=== PATIENT | female | born 1995 | race African-American/Black ===

== ENCOUNTER 2017-05-04 02:36 | Emergency (ER) | payer SELFPAY ==
[2017-05-04] MEDS ORDERED: Ibuprofen 800 MG TAB ONE (02:41)
[2017-05-04] MEDS ORDERED: methylPREDNISolone Sod Succ/PF 125 MG/2 ML VIAL ONE (04:38)
--- NOTE | 2017-05-04 08:24 | RAD ---
3 VIEWS LUMBAR SPINE: Date: 05/04/17 HISTORY: Low back pain that started the evening of 05/04/17. Patient states was bending over when felt a po p in the lower back. Pain radiates into legs. FINDINGS: There are five non-rib bearing lumbar-type vertebral bodies. Vertebral body heights and intervertebra l disc spaces do appear to be within normal limits. No fracture or subluxation is visualized. IMPRESSION: No acute findings involving the lumbar spine. POS: DAMON
== END 2017-05-04 05:10 | disposition home or self-care (01) ==
LOC: ERS 02:36
DX: S39.012A Strain of muscle, fascia and tendon of lower back, initial encounter (principal); X50.9XXA Other and unspecified overexertion or strenuous movements or postures, initial encounter
CPT/HCPCS: 72100; 96372; J2930

== ENCOUNTER 2017-12-31 23:23 | Emergency (ER) | payer SELFPAY ==
[2018-01-01] MEDS ORDERED: Ketorolac Tromethamine 30 MG/ML VIAL ONE (00:02)
== END 2018-01-01 00:40 | disposition home or self-care (01) ==
LOC: ERS 23:23
DX: S39.012A Strain of muscle, fascia and tendon of lower back, initial encounter (principal); F41.9 Anxiety disorder, unspecified; F31.9 Bipolar disorder, unspecified; F20.9 Schizophrenia, unspecified; X58.XXXA Exposure to other specified factors, initial encounter
CPT/HCPCS: 96372; J1885

== ENCOUNTER 2019-02-25 09:29 | Emergency (ER) | payer SELFPAY | END 2019-02-25 11:19 | disposition home or self-care (01) | LOC: ERS 09:29 | DX: H10.9 Unspecified conjunctivitis (principal); J45.909 Unspecified asthma, uncomplicated; F41.9 Anxiety disorder, unspecified; F31.9 Bipolar disorder, unspecified; F20.9 Schizophrenia, unspecified | CPT/HCPCS: 99283 ==

== ENCOUNTER 2019-03-01 21:50 | Emergency (ER) | payer SELFPAY ==
[2019-03-01] MEDS ORDERED: Tobramycin Sulfate 0.3% Ophth Susp 5 ml Bottle ONE (22:03)
== END 2019-03-01 22:14 | disposition home or self-care (01) ==
LOC: ERS 21:50
DX: H10.9 Unspecified conjunctivitis (principal); J45.909 Unspecified asthma, uncomplicated; F41.9 Anxiety disorder, unspecified; F31.9 Bipolar disorder, unspecified; F20.9 Schizophrenia, unspecified
CPT/HCPCS: 99283

== ENCOUNTER 2019-03-04 09:36 | Emergency (ER) | payer BC, SELFPAY | END 2019-03-04 10:58 | disposition home or self-care (01) | LOC: ERS 09:36 | DX: H10.9 Unspecified conjunctivitis (principal); F31.9 Bipolar disorder, unspecified; F41.9 Anxiety disorder, unspecified; F20.9 Schizophrenia, unspecified | CPT/HCPCS: 99283 ==

== ENCOUNTER 2019-08-05 09:04 | Outpatient (CLI) | payer OTHER ==
--- NOTE | 2019-08-05 09:54 | ULT ---
Obstetrical ultrasound: 08/05/2019 COMPARISON: None HISTORY: Assess anatomy TECHNIQUE: Multiplanar grayscale sonographic imaging of the gravid uterus obtained. FINDINGS: There is a single intrauterine gestation demonstrating a vertex presentation. Cervical stanley th is 3.2 cm. Placenta located anteriorly with no evidence for previa or abruption. Four-chamber heart view unremarkable with heart rate of 140 bpm. The stomach, kidneys, um bilical cord insertion, umbilical cord, and urinary bladder appear unremarkable. Intracranial contents, nose and lips, spine unremarkable. Amniotic fluid index is 13.3 cm. biometry: Biparietal diameter 6.8 cm 27 weeks 2 days Head circumference 24.5 cm 26 weeks 5 days Abdominal circumference 21.9 cm 26 weeks 3 days Femur length 4.8 cm 26 weeks 1 day Average age based on ultrasound is 26 weeks 5 days. Estimated date of delivery is 11/06/2019. Estimated weight is 922 g +/- 135 g. IMPRESSION: Intrauterine gestation as detailed above.
== END 2019-08-05 09:05 | disposition home or self-care (01) ==
LOC: BICULT 09:04
PROVIDERS: ATTEND Family Medicine
DX: O09.92 Supervision of high risk pregnancy, unspecified, second trimester (principal); Z3A.26 26 weeks gestation of pregnancy
CPT/HCPCS: 76805

== ENCOUNTER 2019-10-30 19:54 | Day surgery (SDC) | payer OTHER ==
[2019-10-30] MEDS ORDERED: hydrALAZINE 20 MG/ML VIAL SLOW IVP PRN (21:03)
[2019-10-30 21:06] VITALS: BMI 37.7
[2019-10-30 21:17] LABS: Amnisure Internal Control QC ACCEPTABLE (ACCEPTABLE); Amnisure Test No Membranes Rupture (No Rupture)
--- NOTE | 2019-10-30 22:56 | PRG ---
DATE OF SERVICE: 10/30/2019 TIME OF SERVICE: 2125 hours. PRESENTING COMPLAINT: Possible rupture of membranes at 38 to 39 weeks. HISTORY OF PRESENT ILLNESS: The patient sees Dr. Ward at [facility]. She is a G4, P3, with EDC of 11/06. She complains of possible leakage of fluid. Reports active fetus. Denies significant contractions. 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 Blood type O positive, antibody negative. Pap negative. Rubella immune. VDRL nonreactive. Hepatitis B, GC, chlamydia negative. Group B strep negative. PAST MEDICAL HISTORY: None. PAST SURGICAL HISTORY: None. ALLERGIES: DENIES. MEDICATION: vitamins. SOCIAL HISTORY: Denies tobacco, alcohol, or IV drug use. FAMILY HISTORY: Noncontributory. REVIEW OF SYSTEMS: Noncontributory. PHYSICAL EXAMINATION: GENERAL: Obese, black female, in no acute distress. VITAL SIGNS: Blood pressure 129/86, pulse 85, respirations 18, and temperature 98.2. HEENT: Within normal limits. LUNGS: Clear to auscultation bilaterally. HEART: Regular rate and rhythm. ABDOMEN: Soft and nontender. Fundal height 38. FHTs 140s. Vulva without lesions. Vaginal exam by RN was 1, 50, and -3, cephalic. EXTREMITIES: Without clubbing, cyanosis, or edema. LABORATORY DATA: AmniSure was collected, which was negative for rupture of membranes. monitoring is carried out for greater than 30 minutes with category I heart rate tracing. Positive accelerations, no decelerations. Baseline 150s. IMPRESSION: No evidence of active labor. No evidence of rupture of membranes. 38 to 39 weeks' gestation. PLAN: Discharge home. Keep scheduled followup tomorrow with Dr. Ward. Job ID: [id number]
== END 2019-10-30 21:40 | disposition home health service (06) ==
LOC: L&D/OP 19:54
PROVIDERS: ATTEND Family Medicine
DX: O99.89 Other specified diseases and conditions complicating pregnancy, childbirth and the puerperium (principal); N89.8 Other specified noninflammatory disorders of vagina; Z3A.38 38 weeks gestation of pregnancy
CPT/HCPCS: 84112; 99283

== ENCOUNTER 2019-11-01 10:10 | Day surgery (SDC) | payer OTHER ==
[2019-11-01 10:43] VITALS: BP 124/85; TEMP 98.5; BMI 38.9
[2019-11-01] MEDS ORDERED: hydrALAZINE 20 MG/ML VIAL SLOW IVP PRN (11:10)
--- NOTE | 2019-11-01 13:54 | ULT ---
ULTRASOUND BIOPHYSICAL PROFILE: DATE: 11/01/2019 HISTORY: 24-year-old female in third trimester of with variable cardiac decelerations. FINDINGS: breathin tone: 2 movement: 2 Amniotic fluid volume: 2 DYLLAN: 9 cm lie: Vertex Maternal cervix: Internal os dilated to approximately 2.5 cm. Amniotic fluid funneling into the dista l endocervical canal. The distal closed portion of the endocervical canal measures 1.5 cm in craniocaudal dimension heart rate: 143 BPM. IMPRESSION: 1. Normal biophysical profile score of 8 out of 8, excluding the nonstress test. 2. Open endocervical canal, with funneling of amniotic fluid.
--- NOTE | 2019-11-02 11:47 | SS ---
DATE OF ADMISSION: 11/01/2019 DATE OF DISCHARGE: 11/01/2019 REGULAR PHYSICIAN: Derrick Ward MD EVALUATING PHYSICIAN: Slim Mcmullen MD CHIEF COMPLAINT: Contractions at home. HISTORY OF PRESENT ILLNESS: Ms. Vivas is a 24-year-old, black, G4, P3, with an estimated date of confinement of 11/07/2019, who presents complaining of uterine contractions since last evening. She denies rupture of membranes or vaginal bleeding. Her care has been with Dr. Ward and has been reportedly uncomplicated. PAST OBSTETRICAL HISTORY: Includes 3 vaginal deliveries at term. PAST MEDICAL HISTORY: None. PAST SURGICAL HISTORY: None. CURRENT MEDICATIONS: vitamins. ALLERGIES: NO KNOWN ALLERGIES. SOCIAL HISTORY: Denies tobacco, alcohol, or drug use. FAMILY HISTORY: Unremarkable. REVIEW OF SYSTEMS: Denies nausea, vomiting, fever, chills, ruptured membranes, or vaginal bleeding. PHYSICAL EXAMINATION: VITAL SIGNS: Blood pressure is 123/78. GENERAL: She is pleasant and in no distress. ABDOMEN: Soft, nontender, and gravid. PELVIS: Pelvic examination by triage nurse shows the cervix to be 1 cm dilated, thick, and uneffaced with a vertex presenting. heart rate tracing is stable. Uterine contractions are seen every 6 to 8 minutes. ASSESSMENT: 1. A 39-week intrauterine . 2. No evidence of active labor at this time. PLAN: The patient will be dismissed to home with precautions. She is told to keep herself hydrated well at home. She will discuss induction plans with Dr. Ward for later this week. Job ID: [id number]
== END 2019-11-01 14:06 | disposition home health service (06) ==
LOC: L&D/OP 10:10
PROVIDERS: ATTEND Family Medicine
DX: O47.1 False labor at or after 37 completed weeks of gestation (principal); Z3A.39 39 weeks gestation of pregnancy
CPT/HCPCS: 76819

== ENCOUNTER 2022-02-27 08:14 | Emergency (ER) | payer OTHER, SELFPAY ==
[2022-02-27 09:34] LABS: #Eosinphils 0.1 thou/uL (0.0-0.7); #Lymphocytes 2.6 thou/uL (1.20-3.40); #Monocytes 0.5 thou/uL (0.11-0.59); #Neutrophils 7.1 thou/uL (1.40-6.50); %Basophils 0.3 % (0.0-1.0); %Eosinophils 0.6 % (0.0-10.0); %Lymphocytes 25.6 % (21.0-51.0); %Monocytes 4.9 % (0.0-10.0); %Neutrophils 68.6 % (42.0-75.0); Mean Corpuscular Volume 87.6 fL (78.0-98.0); Mean Platelet Volume 8.6 fL (7.4-10.4); Platelet Count 242 thou/uL (130-400); RBC Distribution Width 12.2 % (11.5-14.5); Red Blood Cell (RBC) Count 4.66 mill/uL (4.20-5.40); White Blood Cell (WBC) Count 10.3 thou/uL (4.8-10.8)
[2022-02-27 09:43] LABS: BHCG - Serum Negative (NEGATIVE); Pregs Control Background? CLEAR/WHITE (CLR/WHITE); Pregs Control Bar Appear? YES (CONTROL BAR)
[2022-02-27 09:51] LABS: ALT (SGPT) 12 U/L (8-55); AST (SGOT) 11 U/L (5-34); Albumin 3.7 g/dL (3.5-5.0); Alkaline Phosphatase 88 U/L (40-110); Anion Gap 12 mmol/L (10-20); BUN (Urea Nitrogen) 8 mg/dL (7.0-18.7); Bilirubin, Total 0.4 mg/dL (0.2-1.2); Calc. Creatinine Clearance 0 mL/min (70-130); Carbon Dioxide 22 mmol/L (22-29); Chloride 106 mmol/L (98-107); Estimated GFR 122; Globulin 3.3 g/dL (2.4-3.5); Glucose 90 mg/dL (70-105); Lipase 24 U/L (8-78); Potassium 4.1 mmol/L (3.5-5.1); Sodium 136 mmol/L (136-145)
[2022-02-27 11:40] LABS: Bacteria/HPF None Seen HPF (None Seen); Bilirubin Negative (Negative); Blood, Urine Negative (Negative); Clarity Clear (Clear); Glucose, Urine (Dipstick) Normal (Negative); Ketone, Urine Negative (Negative); Leukocyte 25 Leu/uL (Negative); Nitrite Negative (Negative); Protein, Urine (Dipstick) Negative (Neg-Trace); RBC/HPF 0-3 HPF (0-3); Specific Gravity, Urine 1.022 (1.002-1.036); Urobilinogen Normal mg/dL (Less than 2); WBC/HPF 0-3 HPF (0-3)
[2022-02-27] MEDS ORDERED: Dexamethasone 10 MG/ML VIAL ONE (12:16)
[2022-02-27] MEDS ORDERED: Iopamidol-370 76% 500 ML 1 ML ONE (14:38)
== END 2022-02-27 12:26 | disposition home or self-care (01) ==
LOC: ERS 08:14
DX: J20.9 Acute bronchitis, unspecified (principal); R04.2 Hemoptysis; Z20.822 Contact with and (suspected) exposure to COVID-19
CPT/HCPCS: 36415; 71045; 71275; 80053; 81003; 81015; 83690; 84484; 84703; 85025; 85379; J1100; Q9967; U0003; U0005

== ENCOUNTER 2022-04-18 17:26 | Emergency (ER) | payer OTHER ==
[2022-04-18] MEDS ORDERED: Ketorolac Tromethamine 30 MG/ML VIAL ONE (18:33)
== END 2022-04-18 19:40 | disposition home or self-care (01) ==
LOC: ERS 17:26
DX: S16.1XXA Strain of muscle, fascia and tendon at neck level, initial encounter (principal); V89.2XXA Person injured in unspecified motor-vehicle accident, traffic, initial encounter
CPT/HCPCS: 72125; 96372; J1885

== ENCOUNTER 2025-01-15 20:11 | Emergency (ER) | payer OTHER, SELFPAY ==
[2025-01-15 21:12] LABS: #Basophils Less than 0.03 10x3/uL (0.0-0.2); #Eosinophils 0.06 10x3/uL (0.0-0.7); #Monocytes 0.71 10x3/uL (0.11-0.59); #Neutrophils 5.68 10x3/uL (1.40-6.50); %Basophils 0.1 % (0.0-1.0); %Eosinophils 0.7 % (0.0-10.0); %Lymphocytes 28.6 % (21.0-51.0); %Monocytes 7.8 % (0.0-10.0); %Neutrophils 62.6 % (42.0-75.0); Hematocrit 35.0 % (36.0-47.0); Hemoglobin 11.4 g/dL (12.0-16.0); Mean Corpuscular Hemoglobin 27.4 pg (27.0-31.0); Mean Corpuscular Volume 84.1 fL (78.0-98.0); Platelet Count 219 10x3/uL (130-400); Red Blood Cell (RBC) Count 4.16 mill/uL (4.20-5.40); White Blood Cell (WBC) Count 9.08 10x3/uL (4.8-10.8)
[2025-01-15 21:40] LABS: ALT (SGPT) 7 U/L (Less than 34); AST (SGOT) 15 U/L (11-34); Albumin 3.2 g/dL (3.1-4.5); Alkaline Phosphatase 65 U/L (40-110); Anion Gap 14 mmol/L (10-20); BUN (Urea Nitrogen) 4 mg/dL (7.0-18.7); Bilirubin, Total 0.2 mg/dL (0.3-1.2); Calc. Creatinine Clearance 0 mL/min (70-130); Calcium 8.5 mg/dL (7.8-10.44); Carbon Dioxide 20 mmol/L (22-29); Chloride 108 mmol/L (98-107); Globulin 3.3 g/dL (2.4-3.5); Glucose 68 mg/dL (70-105); Potassium 3.6 mmol/L (3.5-5.1); Sodium 138 mmol/L (136-145)
[2025-01-15 21:42] LABS: Troponin I Less than 0.010 ng/mL (< 0.028)
[2025-01-15 22:25] LABS: Bacteria/HPF None Seen HPF (None Seen); CAUTI Indications for Culture Pelvic or flank pain; Glucose, Urine (Dipstick) Normal (Negative); Leukocyte Negative Leu/uL (Negative); Protein, Urine (Dipstick) Negative (Neg-Trace); RBC/HPF 0-3 HPF (0-3); Specific Gravity, Urine 1.027 (1.002-1.036); WBC/HPF 0-3 HPF (0-3)
[2025-01-15 22:30] LABS: Urine Culture Reflex No No
== END 2025-01-15 22:54 | disposition home or self-care (01) ==
LOC: ERS 20:11
DX: O26.811 Pregnancy related exhaustion and fatigue, first trimester (principal); F90.9 Attention-deficit hyperactivity disorder, unspecified type; F31.9 Bipolar disorder, unspecified; J45.909 Unspecified asthma, uncomplicated; Z55.6 Problems related to health literacy; Z3A.12 12 weeks gestation of pregnancy
CPT/HCPCS: 71045; 80053; 81001; 84484; 85025; 93005; 96360; 96361